=== PATIENT | male | born 1965 | race Caucasian/White ===

== ENCOUNTER → 2018-03-28 15:03 | Outpatient (CLI) | payer BC ==
[~2018-03-28 15:03] MED LIST: COUMADIN2.5 MG PO; HYDROCODON-ACE1 EA10 PO; LISINOPRIL-HCT1 EAC7 PO; OMEPRAZOLE20 M1 PO
== END | disposition home or self-care (01) ==
LOC: D.LABREF 15:03
DX: M17.11 Unilateral primary osteoarthritis, right knee (principal); Z11.8 Encounter for screening for other infectious and parasitic diseases

== ENCOUNTER 2018-04-18 10:09 | Inpatient (IN) | payer BC ==
[~2018-04-18] VITALS: Ht 185.4 cm; Wt 150.9 kg
[2018-04-19] MEDS ORDERED: OMEPRAZOLE20 M1 PO (14:25)
[2018-04-19] MEDS ORDERED: COUMADIN2.5 MG PO (14:26)
[2018-04-19] MEDS ORDERED: HYDROCODON-ACE1 EA10 PO (14:27)
[2018-04-20] MEDS ORDERED: LISINOPRIL-HCT1 EAC7 PO (10:51)
[2018-04-20 11:48] LABS: BASOPHILS 0.7 % (0-2); EOSINOPHILS 7.4 % (0-7); HEMATOCRIT 41.3 % (42.0-54.0); HEMOGLOBIN 12.4 g/dL (13.5-17.5); IMMATURE GRANULOCYTES 0.1 % (0-5); LYMPHOCYTES 19.4 % (15-50); MCH 24.4 pg (26.0-34.0); MCV 81.1 fL (80.0-100.0); MEAN PLATELET VOLUME 9.8 fL (7.4-10.4); MONOCYTES 10.8 % (2-11); NEUTROPHILS 61.6 % (40-80); PLATELET COUNT 271 10x3/uL (130-400); RBC 5.09 10x6/uL (4.20-6.10); RDW 14.6 % (11.5-14.5); WBC 7.1 10x3/uL (4.8-10.8)
[2018-04-20 12:04] LABS: CALCIUM 8.6 mg/dL (8.5-10.1); CARBON DIOXIDE 29.7 mmol/L (21.0-32.0); CREATININE - SERUM 1.1 mg/dL (0.6-1.3); POTASSIUM - SERUM 4.7 mmol/L (3.5-5.1)
[2018-04-20 12:18] LABS: APTT 42.6 SECONDS (22.8-39.4); INR 2.01 (0.85-1.17); PROTIME 22.1 SECONDS (11.6-15.0)
[2018-04-20 12:28] LABS: APPEARANCE CLEAR (CLEAR); BACTERIA FEW /hpf (NONE SEEN); BILIRUBIN NEGATIVE (NEGATIVE); COLOR YELLOW (YELLOW); EPITHELIAL CELLS OCC /hpf (0-5); GLUCOSE NEGATIVE (NEGATIVE); KETONE NEGATIVE (NEGATIVE); NITRITE NEGATIVE (NEGATIVE); PROTEIN NEGATIVE (NEGATIVE); RED CELLS - URINE OCC /hpf (0-5)
[2018-04-26] MEDS ORDERED: LOVENOX40 MG/0.4 SC (12:56)
[2018-04-26 12:57] VITALS: BP 141/78; BMI 42.3
--- NOTE | 2018-04-26 19:46 | NUR ---
1800 DR. CACERES HERE SPEAKS TO PT. 1930 DR. CACEERS HERE SPEAKS TO PT. CASE CANCELLED FOR TODAY AND RESCHEDULED FOR IN THE AM. IV DC'D WITH CATH INTACT RELEASED AMB. WITH . PT TO RETURN AT 0700.
--- NOTE | 2018-04-26 19:46 | NUR ---
1700 URINAL PROVIDED PT. UPDATE PROVIDED.
[2018-04-27 04:00] VITALS: BP 94/40
[2018-04-27 07:37] VITALS: BP 110/73; Ht 185.4 cm; Wt 150.9 kg
[2018-04-27 09:49] LABS: APTT 37.7 SECONDS (22.8-39.4); INR 1.11 (0.85-1.17); PROTIME 13.8 SECONDS (11.6-15.0)
[2018-04-27 13:43] VITALS: BP 115/72
[2018-04-27 20:00] VITALS: BP 107/59
[2018-04-28] VITALS (39 sets, daily range): BP systolic 70–171; BP diastolic 48–94
--- NOTE | 2018-04-28 03:59 | NUR ---
I have reviewed this patient and I concur with the Shift Assessment completed by the Licensed Practical Nurse today this shift.
[2018-04-28 05:07] LABS: BASOPHILS 0.2 % (0-2); EOSINOPHILS 4.3 % (0-7); HEMATOCRIT 36.7 % (42.0-54.0); HEMOGLOBIN 10.8 g/dL (13.5-17.5); IMMATURE GRANULOCYTES 0.2 % (0-5); LYMPHOCYTES 12.6 % (15-50); MCH 24.2 pg (26.0-34.0); MCHC 29.4 g/dL (31.0-37.0); MCV 82.1 fL (80.0-100.0); MEAN PLATELET VOLUME 10.6 fL (7.4-10.4); NEUTROPHILS 71.7 % (40-80); PLATELET COUNT 219 10x3/uL (130-400); RBC 4.47 10x6/uL (4.20-6.10); RDW 15.2 % (11.5-14.5); WBC 8.1 10x3/uL (4.8-10.8)
[2018-04-28 05:30] LABS: ALBUMIN 2.7 g/dL (3.4-5.0); ANION GAP 12.8 mmol/L (8-16); BILIRUBIN - TOTAL 0.46 mg/dL (0.2-1.3); CALCIUM 7.6 mg/dL (8.5-10.1); CARBON DIOXIDE 27.9 mmol/L (21.0-32.0); CREATININE - SERUM 2.2 mg/dL (0.6-1.3); POTASSIUM - SERUM 4.7 mmol/L (3.5-5.1); PROTEIN - SERUM 5.4 g/dL (6.4-8.2)
--- NOTE | 2018-04-28 06:53 | OP ---
PATIENT NAME: ANTELMO CASTELLANOS MEDICAL RECORD: [id number] :61 LOCATION:D.MS [id number] ADMISSION DATE:04/27/18 SURGEON: ANTELMO CACERES DO DATE OF OPERATION: 04/27/2018 PROCEDURE PERFORMED: Right total knee arthroplasty. PREOPERATIVE DIAGNOSIS: Right knee osteoarthritis. POSTOPERATIVE DIAGNOSIS: Right knee osteoarthritis. INDICATIONS: Mr. Castellanos is a 53-year-old male who has been getting injections in his knees periodically for several years. He lost a significant amount of weight as well. He has tried every nonoperative treatment possible for knee osteoarthritis and is ready for something surgically to be done. He was seen in my office a few months ago and informed of the risks and benefits of the procedure including infection, bleeding, damage to nerve or vessels. He has an increased risk for blood clots due to his factor V Leiden deficiency and his primary care physician did bridge him with Lovenox. Also due to the size, he has increased risk for fracture, failure of implants, and need for revision and infection. He was okay with those risk and signed the consent. SURGEON: Antelmo Caceres DO DESCRIPTION OF PROCEDURE: The patient received a block by anesthesia in the preoperative area and taken to the operative suite, laid in supine position and given a gram of vancomycin preoperatively. The right knee was prepped and draped in sterile fashion. A timeout was performed and everyone was in agreement with the correct side, site, patient, and procedure. The incision then began, that was marked out over the anterior knee and covered with Ioban. Incision began along the marked out line. Careful dissection was made down to the capsule. It did have a small hard nodule type of tissue at the distal extent of the incision that he wanted to excise and this was removed at that time, appeared to be a lipoma. After this was excised, the medial parapatellar approach was used to go through the capsule. All bleeding was coagulated with the Aquamantys during the procedure. The fat pad was partially removed. The patella was everted and milled down to fit the prosthesis. The femur was then flexed up. ACL was removed and a drill was used to enter the femoral canal. Once the femoral canal was entered, this was irrigated and then the distal femur guide was put on, the distal femur was resected. The tibia was then exposed and the proximal tibia was cut through the guide. Then, the knee was brought to extension. Lamina shipping clerk/admin was used to open it up and menisci were removed from the medial and lateral side and any other bone fragments that were left after the cut. After that was completed, the medial and lateral gutters as well as the posterior capsule was coagulated with the Aquamantys. The knee was then flexed up and the femur sized to be an 80. Once that was sized 4-in-1 cutting block was put on and the femur was cut and the trial was put on. The tibia was floated into place and then rotation was marked. Patella was then drilled as well as the lug holes on the femur. Femur was then removed and the tibia was exposed and sized to be an 87. This was drilled and punched and then irrigated and cement was mixed and put into the tibia and on the implant and that was impacted into place. Once the tibia impacted into place, excess cement was removed. The femur was put and pressed it on and malleted into place. The poly was put in between the femur and the tibia at that time and brought to extension and the patella was put on, cement on the implant and on the patella and held in OPERATIVE REPORT [id number] ANTELMO CASTELLANOS while the cement dried. The through irrigation was done at the knee at this time. After that was completed, the cement was dried, a trial of 14 poly has fit very well. Had good medial and lateral stability and flexion and extension and this was put in with a deep dish anterior stabilized with 14 E-poly. I then locked into place with the locking mechanism. Knee was irrigated one more time and then tobramycin and vancomycin powder put in the gutters as well as Surgicel beads and the capsule was closed with #2 Ethibond in bughna-dn-[id number] fashion and then that was irrigated and then the skin was closed with 2-0 Vicryl in inverted interrupted fashion and a ZipLine was placed on the knee. Adaptic, 4 x 4s, ABD, Webril, and Osmar wrap were then placed on the knee and VANIA hose stocking up to the knee. Blood loss was approximately 200 mL. COMPLICATIONS: None. TRANSINT:[id number] Voice Confirmation ID: [id number] DOCUMENT ID: [id number] ANTELMO CACERES DO at 0653 CC: CHANTAL SAENZ MD [id number] DICTATION DATE: 04/27/18 1252 TIMEKEEPER SUPERVISOR: 04/27/18 2244 ADM IN [place] [address] [facility], [facility]901
--- NOTE | 2018-04-28 07:53 | NUR ---
AWAKE AND ALERT. ORIENTED X3. NO C/O AT THIS TIME. LUNGS ARE CLEAR BILATERALLY, NO COUGH NOTED. SKIN IS INTACT WITHOUT REDNESS EXCEPT INCISION TO RIGHT KNEE WHICH HAS A DRY INTACT DRESSING PLACE. DR. CACERES HERE AND CHANGED DRESSING THIS AM. IV TO RIGHT FOREARM IS PATENT WITHOUT REDNESS AT INSERTION SITE. DENIES NEEDS. CPM IN PLACE AT THIS TIME. SCD'S IN PLACE.
--- NOTE | 2018-04-28 09:15 | NUR ---
UP TO CHIAR AT BEDSIDE PER PT. REQUESTED AND GIVEN OXYCODONE PO FOR C/O RIGHT KNEE PAIN LEVEL 6. WILL MONITOR.
--- NOTE | 2018-04-28 12:00 | NUR ---
BP IS LOW. MANUAL CHECK WAS 70/50. 500CC BOLUS INITIATED PER ORDERS. WILL MONITOR.
--- NOTE | 2018-04-28 13:11 | NUR ---
BP IS 70/50 AT THIS TIME. ASSISTED TO BED PER STAFF. FLORIAN WALDRON NOTIFIED OF SAME. 500CC BOLUS INTIATED. DR CACERES NOTIFIED OF CURRENT BP. WILL MONITOR.
--- NOTE | 2018-04-28 14:00 | NUR ---
UNABEL TO GET BP MANUAL OR MACHINE. AFTER A PERIOD OF TIME BP OBTAINED AT 60PALP. RAPID RESPONSE CALLED AFTER UNABLE TO FIND BP. PATIENT TRANSFERRED TO ICU VIA BED PER SANTANA.
[2018-04-28 14:34] LABS: HEMATOCRIT 32.5 % (42.0-54.0); HEMOGLOBIN 9.6 g/dL (13.5-17.5)
[2018-04-28 15:10] LABS: CKMB 0.4 U/L (0.0-3.6); CREATINE KINASE 164 UL (21-232); PRO BNP 117 pg/mL (0-125); TROPONIN-I < 0.017 ng/mL (0.000-0.060)
--- NOTE | 2018-04-28 15:18 | NUR ---
Prevena dressing applied to right knee per Dr. Arreola's orders. Pt tolerated well.
--- NOTE | 2018-04-28 15:30 | NUR ---
PT ARRIVED TO UNIT AROUND 1505 VIA BED. BP WAS 104/63. PLACED ON LEVOPHED DRIP AT 4MCG/MIN. PLACED ON 2L OF 02 VIA NC. PT DENIES PAIN AT THIS TIME. HAS DRESSING ON RIGHT KNEE. ABLE TO ANSWER QUESTIONS APPROPRIATELY. HAS PIV ON RIGHT FOREARM. SAFETY MEASURES IN PLACE. WILL CONTINUE TO MONITOR.
--- NOTE | 2018-04-28 16:08 | NUR ---
PT ON LEVOPHED DRIP. SPOKE WITH HARRIETT GOMEZ REGARDING ORDER. SHE SAID TO CONTINUE WITH LEVOPHED DRIP UNTIL DR. BARNARD SEE PATIENT.
--- NOTE | 2018-04-28 16:17 | NUR ---
DR. BARNARD NOTIFIED OF CONSULT. NOT IN HOSPITAL AT THIS TIME. ORDERED TO CONTINUE WITH LEVOPHED DRIP TO MAINTAIN BP.
--- NOTE | 2018-04-28 16:25 | MORECARE ---
CASE MANAGEMENT DISCHARGE SUMMARY PATIENT: KWASI CASTELLANOS UNIT: [id number] ADM DATE: 04/27/18 AGE: 53 : 61 SEX: M ROOM/BED: D.2309 AUTHOR: GUSTABO SPENCE PHYSICIAN: REFERRING PHYSICIAN: KWASI CACERES DO DATE OF SERVICE: 04/28/18 Discharge Plan Patient Name: KWASI CASTELLANOS [facility] [facility] 1965 Planned Disposition: Home Anticipated Discharge Date: Discharge Date: Expected LOS: Initial Reviewer: [email or web address] Initial Review Date: 04/26/2018 Generated: 04/28/18 5:25 pm DCPIA - Discharge Planning Initial Assessment Updated by [email or web address]: Olena Moses on 04/28/18 4:23 pm * Is the patient Alert and Oriented? Yes * How many steps to enter\exit or inside your home? * PCP MINI SAENZ'S OFFICE * Pharmacy [facility] * Preadmission Environment Home with Family * ADLs Independent * Other Equipment WALKER, BSC, SHOWER CHAIR, CPM , ICE BATH * List name and contact numbers for known caregivers / representatives who currently or will assist patient after discharge: ANA CASTELLANOS - - [phone] * Verbal permission to speak to the caregivers and representatives has been obtained from the patient. Yes * Additional services required to return to the preadmission environment? No * Can the patient safely return to the preadmission environment? Yes * Has this patient been hospitalized within the prior 30 days at any hospital? No Patient Name: KWASI CASTELLANOS Page [phone] at 1625 All edits/amendments must be made on the electronic document DICTATION DATE: 04/28/181623 MULTIMEDIA MANAGER: GINA 04/28/181623 RPT#: [id number] DC DATE: STATUS: ADM IN [facility] [address] [place] [address] END OF REPORT
--- NOTE | 2018-04-28 16:25 | NUR ---
RATES PAIN 4/10 ON RIGHT KNEE. OXYCODONE 5MG TAB GIVEN AT THIS TIME. LEVOPHED DRIP INFUSING AT 4MCG/MIN. BP 98/50. FAMILY AT BEDSIDE. WILL CONTINUE TO MONITOR.
--- NOTE | 2018-04-28 16:33 | MORECARE ---
CASE MANAGEMENT DISCHARGE SUMMARY PATIENT: KWASI CASTELLANOS UNIT: [id number] ADM DATE: 04/27/18 AGE: 53 : 61 SEX: M ROOM/BED: D.2309 AUTHOR: GUSTABO SPENCE PHYSICIAN: REFERRING PHYSICIAN: KWASI CACERES DO DATE OF SERVICE: 04/28/18 Discharge Plan Patient Name: KWASI CASTELLANOS Facility: [facility]:[place] : 1965 Planned Disposition: Home Anticipated Discharge Date: Discharge Date: Expected LOS: Initial Reviewer: [email or web address] Initial Review Date: 04/26/2018 Generated: 04/28/18 5:33 pm Comments DCP- Discharge Planning Updated by [email or web address]: Olena Moses on 04/28/18 3:[address] Patient Name: KWASI CASTELLANOS Admission Status: Elective Accout number: [id number] Admission Date: 04-27-2018 : 1965 Admission Diagnosis: Attending: KWASI CACERES Current LOS: 1 Anticipated DC Date: Planned Disposition: Home Primary Insurance: [employer] EXCHANGE Discharge Planning Comments: CM met with patient and family at bedside after obtaining verbal consent. Patient lives at home with his family and plans on returning upon discharge. Patient states that he has walker, bedside commode, shower chair, ice bath for knee, and CPM range of motion. Patient denies any Home Health services prior to admission. Patient denies any discharge needs at this time. CM will continue to follow and assist with discharge planning / needs. Liquefier: Olena Moses DCPIA - Discharge Planning Initial Assessment Updated by [email or web address]: Olena Moses on 04/28/18 4:23 pm * Is the patient Alert and Oriented? Yes * How many steps to enter\exit or inside your home? * PCP MINI SAENZ'S OFFICE * Pharmacy [facility] * Preadmission Environment Home with Family * ADLs Independent * Other Equipment WALKER, BSC, SHOWER CHAIR, CPM , ICE BATH * List name and contact numbers for known caregivers / representatives who currently or will assist patient after discharge: ANA CASTELLANOS - - [phone] * Verbal permission to speak to the caregivers and representatives has been obtained from the patient. Yes * Additional services required to return to the preadmission environment? No * Can the patient safely return to the preadmission environment? Yes * Has this patient been hospitalized within the prior 30 days at any hospital? No Last DP export: 04/28/18 3:25 pm Patient Name: KWASI CASTELLANOS Page [phone] at 1633 All edits/amendments must be made on the electronic document DICTATION DATE: 04/28/18 163 INTERIOR PLANT CARETAKER: GINA 04/28/18 163 RPT#: [id number] DC DATE: STATUS: ADM IN [facility] [address] [place] [address] END OF REPORT
--- NOTE | 2018-04-28 16:52 | NUR ---
COUMADIN NOT AVAILABLE IN UNIT. PHARMACY NOTIFIED. SPOKE WITH GABRIELA.
--- NOTE | 2018-04-28 17:09 | NUR ---
DR. CACERES AT BEDSIDE.
--- NOTE | 2018-04-28 17:46 | NUR ---
DR. BARNARD AT BEDSIDE. SPOKE WITH PATIEN AND FAMILY.
--- NOTE | 2018-04-28 18:25 | NUR ---
SBP 112. LEVOPHED DRIP DECREASED TO 5MCG/MIN. WILL CONTINUE TO MONITOR.
--- NOTE | 2018-04-28 19:19 | NUR ---
SBP 89. INCREASED LEVOPHED BACK UP TO 5MCG/MIN.
--- NOTE | 2018-04-28 19:41 | NUR ---
BEDSIDE SHIFT REPORT GIVEN BY DEPARTING RN. PT LAYING IN BED WATCHING TV. AAOX4. PERRLA. RT FA PIV INFUSING MR ORDERED MEDS. LEVOPHED DRIP TO BE TITRATED VIA PROTOCOL. DENIES PAIN AT THIS TIME. SAFETY MEASURES IN PLACE. CBIR. ASSESSMENT COMPLETE. SEE FLOWSHEET FOR DETAILS.
--- NOTE | 2018-04-28 20:49 | NUR ---
REFUSED HS MED. STATED HE DID NOT NEED IT.
[2018-04-28 21:31] LABS: CKMB 0.8 U/L (0.0-3.6); CREATINE KINASE 204 UL (21-232); TROPONIN-I < 0.017 ng/mL (0.000-0.060)
[2018-04-28 21:51] LABS: APPEARANCE CLOUDY (CLEAR); BILIRUBIN NEGATIVE (NEGATIVE); COLOR YELLOW (YELLOW); GLUCOSE NEGATIVE (NEGATIVE); KETONE NEGATIVE (NEGATIVE); NITRITE NEGATIVE (NEGATIVE); PROTEIN 1+ mg/dL (NEGATIVE); UROBILINOGEN NORMAL (NORMAL)
[2018-04-28 21:52] LABS: BACTERIA MODERATE /hpf (NONE SEEN); EPITHELIAL CELLS 0-5 /hpf (0-5); RED CELLS - URINE 0-5 /hpf (0-5)
[2018-04-29] VITALS (42 sets, daily range): BP systolic 95–127; BP diastolic 50–81
--- NOTE | 2018-04-29 03:32 | NUR ---
REASSESSMENT COMPLETE. FRESH WATER PROVIDED. NO CHANGES NOTED. SAFETY MEASURES IN PLACE. CBIR.
[2018-04-29 03:40] LABS: BASOPHILS 0.3 % (0-2); EOSINOPHILS 6.3 % (0-7); HEMATOCRIT 33.1 % (42.0-54.0); HEMOGLOBIN 9.6 g/dL (13.5-17.5); IMMATURE GRANULOCYTES 0.3 % (0-5); LYMPHOCYTES 13.8 % (15-50); MCH 23.6 pg (26.0-34.0); MCV 81.5 fL (80.0-100.0); MEAN PLATELET VOLUME 9.7 fL (7.4-10.4); MONOCYTES 14.5 % (2-11); NEUTROPHILS 64.8 % (40-80); PLATELET COUNT 170 10x3/uL (130-400); RBC 4.06 10x6/uL (4.20-6.10); RDW 15.2 % (11.5-14.5); WBC 8.7 10x3/uL (4.8-10.8)
[2018-04-29 03:49] LABS: INR 1.27 (0.85-1.17); PROTIME 15.4 SECONDS (11.6-15.0)
[2018-04-29 04:05] LABS: ALBUMIN 2.3 g/dL (3.4-5.0); ALKALINE PHOSPHATASE 63 U/L (46-116); BILIRUBIN - TOTAL 0.48 mg/dL (0.2-1.3); CALC OSMOLALITY 294 mosm/kg (275-300); CALCIUM 7.5 mg/dL (8.5-10.1); CARBON DIOXIDE 26.4 mmol/L (21.0-32.0); CHLORIDE - SERUM 106 mmol/L (98-107); CKMB 0.6 U/L (0.0-3.6); CREATINE KINASE 171 UL (21-232); GLUCOSE 132 mg/dL (74-106); POTASSIUM - SERUM 4.7 mmol/L (3.5-5.1); PROTEIN - SERUM 5.3 g/dL (6.4-8.2); SODIUM 141 mmol/L (136-145); UREA NITROGEN 46 mg/dL (7-18); URIC ACID 6.9 mg/dL (2.6-7.2)
[2018-04-29 04:11] LABS: ALT (SGPT) 22 U/L (10-68); CREATININE - SERUM 3.5 mg/dL (0.6-1.3); TROPONIN-I < 0.017 ng/mL (0.000-0.060); eGFR NON AFRICAN AMERICAN 19 mL/min (90-120)
--- NOTE | 2018-04-29 07:30 | NUR ---
SHIFT REPORT RECEIVED. AA&OX4. PAIN 5/10 RIGHT KNEE. HAS R-FOREARM PIV WITH PLASMALYTE AT 100ML/HR AND LEVOPHED AT 2MCG/MIN. LEVOPHED DECREASED TO 1MCG/MIN. BP 115/65. VOIDS USING URINAL. 500ML OF YELLOW URINE NOTED. SHIFT ASSESSMENT COMPLETED. MEAL TRAY DELIVERED AND SET UP. NO FURTHER NEEDS. WILL CONTINUE TO MONITOR.
--- NOTE | 2018-04-29 08:08 | NUR ---
PHYSICAL THERAPY NOTIFIED OF CONSULT. WILL BE HERE TO SET UP CPM MACHINE.
--- NOTE | 2018-04-29 08:34 | NUR ---
LEVOPHED DRIP TURNED OFF AT THIS TIME. BP 122/69. ON ROOM AIR WITH O2 SAT 96%. PAIN MEDICINE GIVEN AT THIS TIME PER ORDERS. RATES PAIN 06/01.
--- NOTE | 2018-04-29 09:35 | NUR ---
URINE SAMPLE COLLECTED VIA CLEAN CATCH. PHYSICAL THERAPY PLACED PT ON CPM MACHINE AT THIS TIME. WILL CONTINUE TO MONITOR.
--- NOTE | 2018-04-29 10:15 | NUR ---
ON CPM MACHINE. RATES PAIN 4/10 AT THIS TIME. GAVE OXYCODONE 5MG TAB AROUND 0830. WILL CONTINUE TO MONITOR AND TREAT PAIN NECESSARY.
--- NOTE | 2018-04-29 10:35 | NUR ---
SPOKE WITH DR. BARNARD AND DR. SAAB REGARDING PT BEING ABLE TO TRANSFER TO FLOOR. BOTH STATED THAT THEY ARE OKAY WITH HIM TRANSFERRING IF BP REMAINS STABLE.
--- NOTE | 2018-04-29 10:55 | NUR ---
CALL RECEIVED FROM LAKESHIA CASTELLANOS, PT'S . WANT BRIEF UP DATE ON PT'S STATUS. NO PASS WORD SET UP. SHE WAS ABLE TO PROVIDE PT'S FULL NAME AND DATE OF . TOLD THAT PT WAS STABLE AND THAT HE WAS OFF PRESSORS AT THIS TIME. SHE STATED THAT SHE WILL BE BY TO SEE PATIENT LATER IN THE DAY.
--- NOTE | 2018-04-29 11:51 | NUR ---
PT CONTINUES ON CPM MACHINE. DENIES ANY NEEDS AT THIS TIME. BP 113/70. PT HAS TRANSFER ORDERS TO ROOM 2210. ATTEMPTED TO CALL REPORT. RECEIVING NURSE WILL CALL ME BACK TO RECIEVE REPORT.
--- NOTE | 2018-04-29 12:18 | NUR ---
REPORT CALLED TO [facility] MAIN ON MED SURG. WILL TRANSFER PT SOON PT IS TAKEN OFF CPM MACHINE.
--- NOTE | 2018-04-29 13:59 | NUR ---
22 G PIV INSERTED ON L-FOREARM BY VENOUS ACCESS NURSE. R-FOREARM PIV DC'D DUE TO LEAKING AROUND INSERTION SITE AND TENDERNESS REPORTED BY PT. PT TRANSFERRED TO ROOM 2210. SPOUSE AWARE OF TRANSFER. PERSONAL BELONGINGS SENT WITH PT. CHART DELIVERED TO FUSION ANALYST. RECEIVING NURSE NOTIFIED OF PT ARRIVAL.
--- NOTE | 2018-04-29 14:10 | NUR ---
RECIVED PT FROM DONNA AND JOLEEN ICU NURSES. NO S/S OF ACUTE DISTRESS. ORDERED PT A TRAY. OXY GIVEN OER MD ORDER. CL IN PLACE. SISTER AT BEDSIDE.
--- NOTE | 2018-04-29 18:38 | NUR ---
PT RESTING IN BED. DENIES PAIN. NO S/S OF ACUTE DISTRESS. CL IN PLACE.
--- NOTE | 2018-04-29 19:15 | NUR ---
RECEIVED CARE FROM DAY NURSE. LYING IN BED WATCHING TV. REPORTS NO NEEDS AT THIS TIME. CALL LIGHT AT SIDE. IV INFUSING PER ORDER TO LEFT WRIST.
[2018-04-30 04:00] VITALS: BP 114/69
--- NOTE | 2018-04-30 06:00 | NUR ---
PLACED ON CPM
[2018-04-30 06:23] LABS: BASOPHILS 0.3 % (0-2); EOSINOPHILS 5.2 % (0-7); HEMATOCRIT 32.4 % (42.0-54.0); HEMOGLOBIN 9.6 g/dL (13.5-17.5); IMMATURE GRANULOCYTES 0.3 % (0-5); LYMPHOCYTES 10.4 % (15-50); MCH 23.9 pg (26.0-34.0); MCHC 29.6 g/dL (31.0-37.0); MCV 80.8 fL (80.0-100.0); MEAN PLATELET VOLUME 10.5 fL (7.4-10.4); MONOCYTES 11.4 % (2-11); NEUTROPHILS 72.4 % (40-80); PLATELET COUNT 185 10x3/uL (130-400); RBC 4.01 10x6/uL (4.20-6.10); RDW 15.1 % (11.5-14.5); WBC 8.7 10x3/uL (4.8-10.8)
[2018-04-30 06:37] LABS: ALBUMIN 2.3 g/dL (3.4-5.0); ANION GAP 13.2 mmol/L (8-16); BILIRUBIN - TOTAL 0.6 mg/dL (0.2-1.3); CALCIUM 7.9 mg/dL (8.5-10.1); CARBON DIOXIDE 27.4 mmol/L (21.0-32.0); POTASSIUM - SERUM 4.6 mmol/L (3.5-5.1); PROTEIN - SERUM 5.6 g/dL (6.4-8.2)
[2018-04-30 06:38] LABS: CREATININE - SERUM 2.5 mg/dL (0.6-1.3)
--- NOTE | 2018-04-30 08:13 | NUR ---
PT RESTING IN BED. CO OF CPM NOT FEELING WELL. REPOSITIONED AND PUT A TOWEL IN GROIN AREA TO PREVENT IT FROM ITCHING. NO S/S OF ACUTE DISTRESS. CL IN PLACE.
[2018-04-30 10:59] VITALS: BP 124/63
[2018-04-30 13:40] VITALS: BP 121/67
[2018-04-30 16:59] VITALS: BP 129/80
--- NOTE | 2018-04-30 19:05 | NUR ---
IN ROOM HELPING PT TO BR. NO S/S OF ACUTE DISTRESS. CL IN PLACE.
--- NOTE | 2018-04-30 19:15 | NUR ---
RECEIVED CARE FROM DAY NURSE. LYING IN BED. CALL LIGHT AT SIDE. IV TO LEFT WRIST/FA SL. NO NEEDS VOICED AT THIS TIME.
[2018-04-30 20:36] VITALS: BP 126/70
[2018-04-30 23:55] VITALS: BP 136/83
[2018-05-01 04:20] VITALS: BP 133/79
--- NOTE | 2018-05-01 05:07 | NUR ---
I have reviewed this patient and I concur with the Shift Assessment completed by the Licensed Practical Nurse today this shift.
--- NOTE | 2018-05-01 06:00 | NUR ---
REFUSED CPM, REPORTS TO TALL FOR THE BED
[2018-05-01 06:45] LABS: BASOPHILS 0.5 % (0-2); EOSINOPHILS 7.1 % (0-7); HEMATOCRIT 31.3 % (42.0-54.0); HEMOGLOBIN 9.5 g/dL (13.5-17.5); IMMATURE GRANULOCYTES 0.4 % (0-5); LYMPHOCYTES 13.5 % (15-50); MCH 24.4 pg (26.0-34.0); MCHC 30.4 g/dL (31.0-37.0); MCV 80.5 fL (80.0-100.0); MEAN PLATELET VOLUME 10.6 fL (7.4-10.4); MONOCYTES 13.9 % (2-11); NEUTROPHILS 64.6 % (40-80); PLATELET COUNT 206 10x3/uL (130-400); RBC 3.89 10x6/uL (4.20-6.10); WBC 7.6 10x3/uL (4.8-10.8)
[2018-05-01 07:17] LABS: ALBUMIN 2.2 g/dL (3.4-5.0); ANION GAP 12.7 mmol/L (8-16); BILIRUBIN - TOTAL 0.55 mg/dL (0.2-1.3); CALCIUM 8.3 mg/dL (8.5-10.1); CARBON DIOXIDE 28.1 mmol/L (21.0-32.0); POTASSIUM - SERUM 4.8 mmol/L (3.5-5.1); PROTEIN - SERUM 5.7 g/dL (6.4-8.2)
[2018-05-01 07:20] LABS: CREATININE - SERUM 1.7 mg/dL (0.6-1.3)
--- NOTE | 2018-05-01 07:57 | NUR ---
PT RESTING IN BED WATCHING TV. DENIES PAIN. NO S/S OF ACUTE DISTRESS. CL IN PLACE.
[2018-05-01] MEDS ORDERED: LOVENOX40 MG/0.4 SC (08:41)
[2018-05-01] MEDS ORDERED: OXYCODONE HCL5 M1 PO (08:44)
[2018-05-01] MEDS ORDERED: OMNICEF300 MG PO (08:44)
[2018-05-01] MEDS ORDERED: VISTARIL50 MG PO (08:44)
[2018-05-01 08:59] VITALS: BP 146/85
--- NOTE | 2018-05-01 11:30 | NUR ---
CONFIRMED WITH ASTRID WILKINSON APN, WITH RENAL THAT PT MAY RESUME LISINOPRIL.
--- NOTE | 2018-05-01 12:23 | NUR ---
PT AND SPOUSE ADVISED THAT [facility] CALLS WILL CALL THEM TO ARRANGE THEIR APPT TIME.
--- NOTE | 2018-05-01 12:58 | NUR ---
LATE ENTRY TO 1530. DC EDUCATION AND INSTRUCTIONS DONE WITH PT AND . DC IV WITH TIP INTACT. DAUGHTER PUSHED PT OFF FLOOR VIA WC. TOOK ALL BELONGINGS. NO S/S OF ACUTE DISTRESS. CL IN PLACE.
--- NOTE | 2018-05-01 13:09 | NUR ---
ADDENDUM TO PRIOR NOTE. LATE ENTRY FOR 1330 NOT 1530. PT DC AT 1330
--- NOTE | 2018-05-01 17:17 | MORECARE ---
CASE MANAGEMENT DISCHARGE SUMMARY PATIENT: KWASI CASTELLANOS UNIT: [id number] ADM DATE: 04/27/18 AGE: 53 : 61 SEX: M ROOM/BED: D.2210 AUTHOR: GUSTABO SPENCE PHYSICIAN: REFERRING PHYSICIAN: KWASI CACERES DO DATE OF SERVICE: 05/01/18 Discharge Plan Patient Name: KWASI CASTELLANOS Facility: [facility]:[place] : 1965 Planned Disposition: Home Anticipated Discharge Date: 05/01/18 Discharge Date: 05/01/2018 Expected LOS: 4 Initial Reviewer: [email or web address] Initial Review Date: 04/26/2018 Generated: 05/01/18 6:17 pm Comments DCP- Discharge Planning Updated by [email or web address]: Olena Moses on 04/28/18 2:[address] Patient Name: KWASI CASTELLANOS Admission Status: Elective Accout number: [id number] Admission Date: 04-27-2018 : 1965 Admission Diagnosis: Attending: KWASI CACERES Current LOS: 1 Anticipated DC Date: Planned Disposition: Home Primary Insurance: [employer] EXCHANGE Discharge Planning Comments: CM met with patient and family at bedside after obtaining verbal consent. Patient lives at home with his family and plans on returning upon discharge. Patient states that he has walker, bedside commode, shower chair, ice bath for knee, and CPM range of motion. Patient denies any Home Health services prior to admission. Patient denies any discharge needs at this time. CM will continue to follow and assist with discharge planning / needs. Road Advisor: Olena Moses DCPIA - Discharge Planning Initial Assessment Updated by [email or web address]: Olena Moses on 04/28/18 4:23 pm * Is the patient Alert and Oriented? Yes * How many steps to enter\exit or inside your home? * PCP MINI SAENZ'S OFFICE * Pharmacy [facility] * Preadmission Environment Home with Family * ADLs Independent * Other Equipment WALKER, BSC, SHOWER CHAIR, CPM , ICE BATH * List name and contact numbers for known caregivers / representatives who currently or will assist patient after discharge: ANA CASTELLANOS - - [phone] * Verbal permission to speak to the caregivers and representatives has been obtained from the patient. Yes * Additional services required to return to the preadmission environment? No * Can the patient safely return to the preadmission environment? Yes * Has this patient been hospitalized within the prior 30 days at any hospital? No Last DP export: 04/28/18 2:33 pm Patient Name: KWASI CASTELLANOS Page [phone] at 1717 All edits/amendments must be made on the electronic document DICTATION DATE: 05/01/181715 STILL WORKER HELPER: GINA 05/01/181715 RPT#: [id number] DC DATE:05/01/18 STATUS: DIS IN [facility] [address] [place] [address] END OF REPORT
--- NOTE | 2018-05-01 17:24 | MORECARE ---
CASE MANAGEMENT DISCHARGE SUMMARY PATIENT: KWASI CASTELLANOS UNIT: [id number] ADM DATE: 04/27/18 AGE: 53 : 61 SEX: M ROOM/BED: D.2210 AUTHOR: GUSTABO SPENCE PHYSICIAN: REFERRING PHYSICIAN: KWASI CACERES DO DATE OF SERVICE: 05/01/18 Discharge Plan Patient Name: KWASI CASTELLANOS Facility: [facility]:[place] : 1965 Planned Disposition: Home Anticipated Discharge Date: 05/01/18 Discharge Date: 05/01/2018 Expected LOS: 4 Initial Reviewer: [email or web address] Initial Review Date: 04/26/2018 Generated: 05/01/18 6:24 pm Comments DCP- Discharge Planning Updated by [email or web address]: Zulema Edwards on 05/01/18 4:[address] LATE ENTRY 1000 PATIENT FOR DISCHARGE TO HOME TODAY. HE HAS HIS DME AT THE BEDSIDE. HE STATES NO ONE SPOKE TO HIM ABOUT OUTPATIENT PHYSICAL THERAPY. HE WOULD LIKE A PROVIDER CLOSE TO HIS HOME IN [place]. HE WILL COME TO [facility] IF HE HAS TO HAVE SERVICE ON SITE. CM FOUND THREE PROVIDERS CLOSER TO THE PATIENT. HE SELECTED [facility] AT [address] [place] [address].. CONTACT PHONE NUMBER [phone]. PROVIDED PATIENT W/ ABOVE INFORMATION. CM AND THE PATIENT WILL CALL [facility] IN THE AM. DCP- Discharge Planning Updated by [id number]: Olena Moses on 04/28/18 2:[address] Patient Name: KWASI CASTELLANOS Admission Status: Elective Accout number: [id number] Admission Date: 04-27-2018 : 1965 Admission Diagnosis: Attending: KWASI CACERES Current LOS: 1 Anticipated DC Date: Planned Disposition: Home Primary Insurance: [employer] EXCHANGE Discharge Planning Comments: CM met with patient and family at bedside after obtaining verbal consent. Patient lives at home with his family and plans on returning upon discharge. Patient states that he has walker, bedside commode, shower chair, ice bath for knee, and CPM range of motion. Patient denies any Home Health services prior to admission. Patient denies any discharge needs at this time. CM will continue to follow and assist with discharge planning / needs. Target Setter: Olena Moses DCPIA - Discharge Planning Initial Assessment Updated by [email or web address]: Olena Moses on 04/28/18 4:23 pm * Is the patient Alert and Oriented? Yes * How many steps to enter\exit or inside your home? * PCP MINI SAENZ'S OFFICE * Pharmacy [facility] * Preadmission Environment Home with Family * ADLs Independent * Other Equipment WALKER, BSC, SHOWER CHAIR, CPM , ICE BATH * List name and contact numbers for known caregivers / representatives who currently or will assist patient after discharge: ANA CASTELLANOS - - [phone] * Verbal permission to speak to the caregivers and representatives has been obtained from the patient. Yes * Additional services required to return to the preadmission environment? No * Can the patient safely return to the preadmission environment? Yes * Has this patient been hospitalized within the prior 30 days at any hospital? No Last DP export: 05/01/18 4:17 p Patient Name: KWASI CASTELLANOS Page [phone] at 1724 All edits/amendments must be made on the electronic document DICTATION DATE: 05/01/181722 TIMING INSPECTOR: GINA 05/01/181722 RPT#: [id number] DC DATE:05/01/18 STATUS: DIS IN [facility] [address] [place] [address] END OF REPORT
--- NOTE | 2018-05-02 10:26 | MORECARE ---
CASE MANAGEMENT DISCHARGE SUMMARY PATIENT: KWASI CASTELLANOS UNIT: [id number] ADM DATE: 04/27/18 AGE: 53 : 61 SEX: M ROOM/BED: D.2210 AUTHOR: GUSTABO SPENCE PHYSICIAN: REFERRING PHYSICIAN: KWASI CACERES DO DATE OF SERVICE: 05/02/18 Discharge Plan Patient Name: KWASI CASTELLANOS Facility: [facility]:[place] : 1965 Planned Disposition: Home Anticipated Discharge Date: 05/01/18 Discharge Date: 05/01/2018 Expected LOS: 4 Initial Reviewer: [id number] Initial Review Date: 04/26/2018 Generated: 05/02/18 11:26 am Comments DCP- Discharge Planning Updated by [email or web address]: Zulema Edwards on 05/02/18 9:[address] TELEPHONE CALL TO [facility] THIS AM. ADVISED OF PATIENT REFERRAL FOR PHYSICAL THERAPY. FAXED FACE SHEET, D/C SUMMARY AND MD ORDER TO [phone].. THEY WILL CONTACT THE PATIENT. 1015 PATIENT'S CALLED REGARDING CPM SETTING. TC TO THE REP, BENJAMIN ROMANO , AT [phone]. HE WILL SEND A REP TO SEE THE PATIENT'S . PHYSICAL THERAPY DISCUSSED CPM SETTINGS W/ THE VIA TELEPHONE. DCP- Discharge Planning Updated by [email or web address]: Zulema Edwards on 05/01/18 4:[address] LATE ENTRY 1000 PATIENT FOR DISCHARGE TO HOME TODAY. HE HAS HIS DME AT THE BEDSIDE. HE STATES NO ONE SPOKE TO HIM ABOUT OUTPATIENT PHYSICAL THERAPY. HE WOULD LIKE A PROVIDER CLOSE TO HIS HOME IN [place]. HE WILL COME TO [facility] IF HE HAS TO HAVE SERVICE ON SITE. CM FOUND THREE PROVIDERS CLOSER TO THE PATIENT. HE SELECTED [facility] AT [facility].. CONTACT PHONE NUMBER [phone]. PROVIDED PATIENT W/ ABOVE INFORMATION. CM AND THE PATIENT WILL CALL [facility] IN THE AM. DCP- Discharge Planning Updated by [email or web address]: Olena Moses on 04/28/18 2:[address] Patient Name: KWASI CASTELLANOS Admission Status: Elective Accout number: [id number] Admission Date: 04-27-2018 : 1965 Admission Diagnosis: Attending: KWASI CACERES Current LOS: 1 Anticipated DC Date: Planned Disposition: Home Primary Insurance: [employer] EXCHANGE Discharge Planning Comments: CM met with patient and family at bedside after obtaining verbal consent. Patient lives at home with his family and plans on returning upon discharge. Patient states that he has walker, bedside commode, shower chair, ice bath for knee, and CPM range of motion. Patient denies any Home Health services prior to admission. Patient denies any discharge needs at this time. CM will continue to follow and assist with discharge planning / needs. Zoology Professor: Olena Moses DCPIA - Discharge Planning Initial Assessment Updated by [email or web address]: Olena Moses on 04/28/18 4:23 pm * Is the patient Alert and Oriented? Yes * How many steps to enter\exit or inside your home? * PCP [facility] OFFICE * Pharmacy [facility] * Preadmission Environment Home with Family * ADLs Independent * Other Equipment WALKER, BSC, SHOWER CHAIR, CPM , ICE BATH * List name and contact numbers for known caregivers / representatives who currently or will assist patient after discharge: ANA CASTELLANOS - - [phone] * Verbal permission to speak to the caregivers and representatives has been obtained from the patient. Yes * Additional services required to return to the preadmission environment? No * Can the patient safely return to the preadmission environment? Yes * Has this patient been hospitalized within the prior 30 days at any hospital? No Last DP export: 05/01/18 4:24 p Patient Name: KWASI CASTELLANOS Page [phone] at 1026 All edits/amendments must be made on the electronic document DICTATION DATE: 05/02/18 1026 FOLDING MACHINE FEEDER: GINA 05/02/18 1026 RPT#: [id number] DC DATE:05/01/18 STATUS: DIS IN [facility] [address] [place] [address] END OF REPORT
--- NOTE | 2018-05-02 14:55 | MORECARE ---
CASE MANAGEMENT DISCHARGE SUMMARY PATIENT: KWASI CASTELLANOS UNIT: [id number] ADM DATE: 04/27/18 AGE: 53 : 61 SEX: M ROOM/BED: D.2210 AUTHOR: GUSTABO SPENCE PHYSICIAN: REFERRING PHYSICIAN: KWASI CACERES DO DATE OF SERVICE: 05/02/18 Discharge Plan Patient Name: KWASI CASTELLANOS Facility: [facility]:[place] : 1965 Planned Disposition: Home Anticipated Discharge Date: 05/01/18 Discharge Date: 05/01/2018 Expected LOS: 4 Initial Reviewer: [email or web address] Initial Review Date: 04/26/2018 Generated: 05/02/18 3:55 pm Comments DCP- Discharge Planning Updated by [email or web address]: Zulema Edwards on 05/02/18 9:[address] TELEPHONE CALL TO [facility] THIS AM. ADVISED OF PATIENT REFERRAL FOR PHYSICAL THERAPY. FAXED FACE SHEET, D/C SUMMARY AND MD ORDER TO [phone].. THEY WILL CONTACT THE PATIENT. 1015 PATIENT'S CALLED REGARDING CPM SETTING. TC TO THE REP, BENJAMIN ROMANO , AT [phone]. HE WILL SEND A REP TO SEE THE PATIENT'S . PHYSICAL THERAPY DISCUSSED CPM SETTINGS W/ THE VIA TELEPHONE. DCP- Discharge Planning Updated by [email or web address]: Zulema Edwards on 05/01/18 4:[address] LATE ENTRY 1000 PATIENT FOR DISCHARGE TO HOME TODAY. HE HAS HIS DME AT THE BEDSIDE. HE STATES NO ONE SPOKE TO HIM ABOUT OUTPATIENT PHYSICAL THERAPY. HE WOULD LIKE A PROVIDER CLOSE TO HIS HOME IN [place]. HE WILL COME TO [facility] IF HE HAS TO HAVE SERVICE ON SITE. CM FOUND THREE PROVIDERS CLOSER TO THE PATIENT. HE SELECTED [facility] AT [facility].. CONTACT PHONE NUMBER [phone]. PROVIDED PATIENT W/ ABOVE INFORMATION. CM AND THE PATIENT WILL CALL [facility] IN THE AM. DCP- Discharge Planning Updated by [email or web address]: Olena Moses on 04/28/18 2:[address] Patient Name: KWASI CASTELLANOS Admission Status: Elective Accout number: [id number] Admission Date: 04-27-2018 : 1965 Admission Diagnosis: Attending: KWASI CACERES Current LOS: 1 Anticipated DC Date: Planned Disposition: Home Primary Insurance: [employer] EXCHANGE Discharge Planning Comments: CM met with patient and family at bedside after obtaining verbal consent. Patient lives at home with his family and plans on returning upon discharge. Patient states that he has walker, bedside commode, shower chair, ice bath for knee, and CPM range of motion. Patient denies any Home Health services prior to admission. Patient denies any discharge needs at this time. CM will continue to follow and assist with discharge planning / needs. Product Applications Scientist: Olena Moses DCPIA - Discharge Planning Initial Assessment Updated by [email or web address]: Olena Moses on 04/28/18 4:23 pm * Is the patient Alert and Oriented? Yes * How many steps to enter\exit or inside your home? * PCP [facility] OFFICE * Pharmacy [facility] * Preadmission Environment Home with Family * ADLs Independent * Other Equipment WALKER, BSC, SHOWER CHAIR, CPM , ICE BATH * List name and contact numbers for known caregivers / representatives who currently or will assist patient after discharge: ANA CASTELLANOS - - [phone] * Verbal permission to speak to the caregivers and representatives has been obtained from the patient. Yes * Additional services required to return to the preadmission environment? No * Can the patient safely return to the preadmission environment? Yes * Has this patient been hospitalized within the prior 30 days at any hospital? No Last DP export: 05/02/18 9:26 a Patient Name: KWASI CASTELLANOS Page [phone] at 1452 All edits/amendments must be made on the electronic document DICTATION DATE: 05/02/18 1451 DOCUMENTUM CONSULTANT: GINA 05/02/18 1453 RPT#: [id number] DC DATE:05/01/18 STATUS: DIS IN [facility] [address] [place] [address] END OF REPORT
== END 2018-05-01 13:03 | disposition home or self-care (01) | DRG 469 ==
LOC: D.SDCHOLD 04-20 10:00 → D.ICU 04-27 07:18 → D.MS 04-27 07:18 → D.ICU 04-28 15:02 → D.MS 04-29 13:44
PROVIDERS: Anesthesiology; Emergency Medicine; Internal Medicine Nephrology; ADMIT Orthopaedic Surgery; ATTEND Orthopaedic Surgery
PROC: 0SRC0J9 Replacement of Right Knee Joint with Synthetic Substitute, Cemented, Open Approach (ICD-10-PCS; principal; 2018-04-27 10:30)
DX: M17.11 Unilateral primary osteoarthritis, right knee (principal); N17.0 Acute kidney failure with tubular necrosis; D68.2 Hereditary deficiency of other clotting factors; Z68.41 Body mass index [BMI] 40.0-44.9, adult; D62 Acute posthemorrhagic anemia; N40.0 Benign prostatic hyperplasia without lower urinary tract symptoms; I10 Essential (primary) hypertension; I95.9 Hypotension, unspecified; E66.01 Morbid (severe) obesity due to excess calories; E86.1 Hypovolemia; Z98.84 Bariatric surgery status

== ENCOUNTER → 2018-06-02 12:29 | Outpatient (CLI) | payer BC ==
[~2018-06-02 12:29] MED LIST changes: +CLEOCIN HCL300 MG PO; +FLORANEX / LACT1 TAB PO; +FOLIC ACID1 MG PO; +KEFLEX500 MG PO; +LOVENOX40 MG/0.4 SC; +MUPIROCIN22 GM TOPICAL; +OMNICEF300 MG PO; +OXYCODONE HCL5 M1 PO; +PROTONIX40 MG PO; +VISTARIL50 MG PO; +ZYLOPRIM100 MG PO
[2018-06-02 12:45] LABS: BASOPHILS 0.6 % (0-2); EOSINOPHILS 7.3 % (0-7); HEMATOCRIT 36.7 % (42.0-54.0); HEMOGLOBIN 11.1 g/dL (13.5-17.5); IMMATURE GRANULOCYTES 0.1 % (0-5); LYMPHOCYTES 17.5 % (15-50); MCH 23.9 pg (26.0-34.0); MCHC 30.2 g/dL (31.0-37.0); MCV 79.1 fL (80.0-100.0); MEAN PLATELET VOLUME 10.1 fL (7.4-10.4); MONOCYTES 10.7 % (2-11); NEUTROPHILS 63.8 % (40-80); RBC 4.64 10x6/uL (4.20-6.10); RDW 15.4 % (11.5-14.5); WBC 8.3 10x3/uL (4.8-10.8)
[2018-06-02 12:46] LABS: PLATELET COUNT 260 10x3/uL (130-400)
[2018-06-02 14:51] LABS: ERYTHROCYTE SEDIMENTATION RATE 28 mm/hr (0-20)
== END | disposition home or self-care (01) ==
LOC: D.LABREF 12:29
PROVIDERS: Orthopaedic Surgery
DX: R60.0 Localized edema (principal)

== ENCOUNTER → 2018-06-02 13:16 | Outpatient (CLI) | payer BC | END | disposition home or self-care (01) | LOC: D.US 13:16 | DX: R22.41 Localized swelling, mass and lump, right lower limb (principal) ==

== ENCOUNTER 2018-06-03 12:55 | Inpatient (IN) | payer BC ==
[~2018-06-03] VITALS: Ht 188 cm; Wt 142.7 kg
[~2018-06-03 12:55] MED LIST changes: -CLEOCIN HCL300 MG PO; -FLORANEX / LACT1 TAB PO; -FOLIC ACID1 MG PO; -KEFLEX500 MG PO; -MUPIROCIN22 GM TOPICAL; -PROTONIX40 MG PO; -ZYLOPRIM100 MG PO
[2018-06-03 13:52] VITALS: BP 146/83; Ht 188 cm; Wt 142.7 kg
[2018-06-03] MEDS ORDERED: HYDROCODON-ACE1 EA10 PO (14:32)
[2018-06-03 14:51] LABS: BASOPHILS 0.5 % (0-2); EOSINOPHILS 8.2 % (0-7); HEMATOCRIT 35.9 % (42.0-54.0); HEMOGLOBIN 10.7 g/dL (13.5-17.5); IMMATURE GRANULOCYTES 0.1 % (0-5); MCH 23.8 pg (26.0-34.0); MCHC 29.8 g/dL (31.0-37.0); MEAN PLATELET VOLUME 9.8 fL (7.4-10.4); MONOCYTES 10.4 % (2-11); NEUTROPHILS 67.8 % (40-80); PLATELET COUNT 274 10x3/uL (130-400); RBC 4.49 10x6/uL (4.20-6.10); RDW 15.3 % (11.5-14.5); WBC 8.2 10x3/uL (4.8-10.8)
[2018-06-03 14:55] LABS: INR 2.62 (0.85-1.17); PROTIME 27.3 SECONDS (11.6-15.0)
[2018-06-03 14:58] LABS: ALBUMIN 2.8 g/dL (3.4-5.0); ANION GAP 11.2 mmol/L (8-16); BILIRUBIN - TOTAL 0.36 mg/dL (0.2-1.3); CALCIUM 8.4 mg/dL (8.5-10.1); CARBON DIOXIDE 28.8 mmol/L (21.0-32.0); CREATININE - SERUM 1.3 mg/dL (0.6-1.3); PROTEIN - SERUM 6.8 g/dL (6.4-8.2)
--- NOTE | 2018-06-03 15:15 | NUR ---
PATIENT IV STARTED BY WILBERT MAIN X 4 STICKS IN LEFT WRIST. TOLERATED WITH SMALL AMOUNT OF PAIN. FAMILY AT BEDSIDE. IVF AND ABX INFUSING. REFUSED MIRALAX. CALL LIGHT WITHIN REACH.
[2018-06-03 16:44] VITALS: BP 118/73
--- NOTE | 2018-06-03 18:48 | NUR ---
PATIENT IN BED WITH IV INTACT. NO COMPLAINTS OR SIGNS OF DISTRESS. CALL LIGHT WITHIN REACH.
[2018-06-03 20:01] VITALS: BP 109/76
--- NOTE | 2018-06-03 20:25 | NUR ---
PT ALERT & ORIENTED. FAMILY IN ROOM VISITING. RLE REDNESS, SWELLING. COMPLETE ASSESSMENT PER FLOW-SHEET. HUNG SCHEDULED ANTIBIOTIC. NO OTHER NEEDS. WILL CONTINUE TO MONITOR.
[2018-06-04 01:25] VITALS: BP 119/68
[2018-06-04 04:57] VITALS: BP 120/76
[2018-06-04 05:38] LABS: BASOPHILS 0.3 % (0-2); EOSINOPHILS 11.5 % (0-7); HEMATOCRIT 32.3 % (42.0-54.0); HEMOGLOBIN 9.5 g/dL (13.5-17.5); IMMATURE GRANULOCYTES 0.3 % (0-5); MCH 23.4 pg (26.0-34.0); MCHC 29.4 g/dL (31.0-37.0); MCV 79.6 fL (80.0-100.0); MEAN PLATELET VOLUME 9.4 fL (7.4-10.4); MONOCYTES 7.4 % (2-11); NEUTROPHILS 65.5 % (40-80); PLATELET COUNT 274 10x3/uL (130-400); RBC 4.06 10x6/uL (4.20-6.10); RDW 15.4 % (11.5-14.5); WBC 6.6 10x3/uL (4.8-10.8)
[2018-06-04 06:12] LABS: ANION GAP 10.4 mmol/L (8-16); CALCIUM 8.1 mg/dL (8.5-10.1); CARBON DIOXIDE 30.2 mmol/L (21.0-32.0); CREATININE - SERUM 1.3 mg/dL (0.6-1.3); POTASSIUM - SERUM 3.6 mmol/L (3.5-5.1)
--- NOTE | 2018-06-04 08:35 | NUR ---
PT AAOX4 RESP EVEN AND NONLABROED, NO SIGNS OF DISTRESS NOTED, REQUESTING FOR LIGHTS TO BE OFF DONE AT THIS TIME, CL IN REACH
[2018-06-04 09:06] VITALS: BP 119/71
[2018-06-04 16:24] VITALS: BP 134/76
[2018-06-04 20:25] VITALS: BP 108/65
--- NOTE | 2018-06-04 20:30 | NUR ---
PT ALERT & ORIENTED. RIGHT LOWER LEG REDNESS IMPROVED SINCE LAST ASSESSMENT. HUNG SCHEDULED ANTIBIOTIC. COMPLETE ASSESSMENT PER FLOW-SHEET. NO OTHER NEEDS. WILL CONTINUE TO MONITOR.
[2018-06-05 00:25] VITALS: BP 121/71
[2018-06-05 03:41] VITALS: BP 106/72
[2018-06-05 05:18] LABS: BASOPHILS 0.8 % (0-2); EOSINOPHILS 15.4 % (0-7); HEMOGLOBIN 10.4 g/dL (13.5-17.5); IMMATURE GRANULOCYTES 0.3 % (0-5); LYMPHOCYTES 23.1 % (15-50); MCH 23.7 pg (26.0-34.0); MCHC 29.7 g/dL (31.0-37.0); MCV 79.7 fL (80.0-100.0); MEAN PLATELET VOLUME 9.3 fL (7.4-10.4); MONOCYTES 10.3 % (2-11); NEUTROPHILS 50.1 % (40-80); PLATELET COUNT 299 10x3/uL (130-400); RBC 4.39 10x6/uL (4.20-6.10); RDW 15.4 % (11.5-14.5); WBC 6.3 10x3/uL (4.8-10.8)
[2018-06-05 05:22] LABS: INR 2.68 (0.85-1.17); PROTIME 27.8 SECONDS (11.6-15.0)
[2018-06-05 05:35] LABS: ANION GAP 10.5 mmol/L (8-16); CALCIUM 8.4 mg/dL (8.5-10.1); CARBON DIOXIDE 30.9 mmol/L (21.0-32.0); CREATININE - SERUM 1.3 mg/dL (0.6-1.3)
[2018-06-05 05:39] LABS: POTASSIUM - SERUM 4.4 mmol/L (3.5-5.1)
--- NOTE | 2018-06-05 08:06 | NUR ---
PT RESTING EYES CLOSED NO SIGNS OF DISTRESS NOTED, EASY RISE AND FALL OF CHEST WILL CONTINUE TO MONITOR CL IN REACH
[2018-06-05 09:08] VITALS: BP 126/72
[2018-06-05 13:36] VITALS: BP 139/75
--- NOTE | 2018-06-05 14:55 | NUR ---
I have reviewed this patient and I concur with the Shift Assessment completed by the Licensed Practical Nurse today this shift.
[2018-06-05 18:14] VITALS: BP 140/86
[2018-06-05 19:50] VITALS: BP 103/76
--- NOTE | 2018-06-05 21:08 | NUR ---
PT ALERT & ORIENTED. RIGHT LOWER LEG REDNESS AND SWELLING IMPROVED SINCE LAST ASSESSMENT. COMPLETE ASSESSMENT PER FLOW-SHEET. NO OTHER OTHER NEEDS. WILL CONTINUE TO MONITOR.
[2018-06-06 00:45] VITALS: BP 121/74
--- NOTE | 2018-06-06 04:13 | NUR ---
LEFT UPPER IV ARM LEAKING. REMOVED CATHETER INTACT. IV 20 G RESITED TO RIGHT UPPER ARM BY JOSE DAVID MCCORD ON FIRST ATTEMPT. PT TOLERATED WELL. IV FLUIDS RESUMED. NO OTHER NEEDS. WILL CONTINUE TO MONITOR.
[2018-06-06 04:28] VITALS: BP 122/69
[2018-06-06 04:55] LABS: BASOPHILS 0.6 % (0-2); EOSINOPHILS 14.4 % (0-7); HEMATOCRIT 35.2 % (42.0-54.0); HEMOGLOBIN 10.5 g/dL (13.5-17.5); IMMATURE GRANULOCYTES 0.3 % (0-5); LYMPHOCYTES 29.2 % (15-50); MCH 23.8 pg (26.0-34.0); MCHC 29.8 g/dL (31.0-37.0); MCV 79.6 fL (80.0-100.0); MEAN PLATELET VOLUME 9.3 fL (7.4-10.4); MONOCYTES 9.7 % (2-11); NEUTROPHILS 45.8 % (40-80); PLATELET COUNT 327 10x3/uL (130-400); RBC 4.42 10x6/uL (4.20-6.10); RDW 15.4 % (11.5-14.5); WBC 6.2 10x3/uL (4.8-10.8)
[2018-06-06 05:08] LABS: ANION GAP 10.9 mmol/L (8-16); CALCIUM 8.7 mg/dL (8.5-10.1); CREATININE - SERUM 1.2 mg/dL (0.6-1.3); POTASSIUM - SERUM 3.9 mmol/L (3.5-5.1)
--- NOTE | 2018-06-06 07:10 | NUR ---
PT SITTING UP IN BED, EYES OPEN. NO C/O PAIN. NO S/S OF ACUTE DISTRESS NOTED. PT ALERT AND ORIENTED. IV TO RIGHT UPPER ARM, 1/2 NS INFUSING @ 50ML/HR. SITE PATENT WITHOUT REDNESS OR SWELLING. PT STATES HE JUST WANTS TO GO HOME. PT DENIES AYTHING FURTHER AT THIS TIME. CALL LIGHT IN REACH. WILL CONTINUE TO MONITOR.
[2018-06-06 09:01] VITALS: BP 138/83
--- NOTE | 2018-06-06 09:51 | NUR ---
I have reviewed this patient and I concur with the Shift Assessment completed by the Licensed Practical Nurse today this shift.
[2018-06-06 12:57] VITALS: BP 134/92
--- NOTE | 2018-06-06 12:57 | MORECARE ---
CASE MANAGEMENT DISCHARGE SUMMARY PATIENT: KWASI CASTELLANOS UNIT: [id number] ADM DATE: 06/03/18 AGE: 53 : 61 SEX: M ROOM/BED: D.2233 AUTHOR: GUSTABO SPENCE PHYSICIAN: REFERRING PHYSICIAN: NURIA MARIO MD DATE OF SERVICE: 06/06/18 Discharge Plan Patient Name: KWASI CASTELLANOS Facility: [facility]:[place] : 1965 Planned Disposition: Home Anticipated Discharge Date: Discharge Date: Expected LOS: Initial Reviewer: [email or web address] Initial Review Date: 06/06/2018 Generated: 06/06/18 1:57 pm Comments DCP- Discharge Planning Updated by [email or web address]: Medina Coon on 06/06/18 11:[address] Patient Name: KWASI CASTELLANOS Admission Status: Urgent Accout number: [id number] Admission Date: 06-03-2018 : 1965 Admission Diagnosis: Attending: NURIA MARIO Current LOS: 3 Anticipated DC Date: Planned Disposition: Home Primary Insurance: [employer] EXCHANGE Discharge Planning Comments: CM met with patient to complete initial dc planning assessment. CM educated patient on the CM role and verbal consent given by patient to complete assessment. Patient lives at home with his . At discharge patient plans to return and feels this is a safe discharge. CM discussed availability of home health, rehab services, and medical equipment. Patient denied known discharge needs at this time. States his will pick him up today. States he has been going to [facility] for PT on his knee. States he has DME at home, but "no longer needs it." CM will continue to follow and will assist as needed with dc plans/needs. Gas Meter Checker: Medina Coon DCPIA - Discharge Planning Initial Assessment Updated by [email or web address]: Medina Coon on 06/06/18 12:53 pm * Is the patient Alert and Oriented? Yes * How many steps to enter\\exit or inside your home? 0/0 * PCP Belkys Ferrell at Dr. Ham's office * Pharm[facility] * Preadmission Environment Home with Family * ADLs Independent * Equipment Bedside Commode Other Shower Chair Walker * Other Equipment CPM Ice machine * List name and contact numbers for known caregivers / representatives who currently or will assist patient after discharge: Rukhsana Castellanos - - [phone] * Verbal permission to speak to the caregivers and representatives has been obtained from the patient. Yes * Community resources currently utilized None * Additional services required to return to the preadmission environment? No * Can the patient safely return to the preadmission environment? Yes * Has this patient been hospitalized within the prior 30 days at any hospital? No Patient Name: KWASI CASTELLANOS Page [phone] at 1257 All edits/amendments must be made on the electronic document DICTATION DATE: 06/06/18 1257 INDIVIDUALIZED EDUCATION PLAN AIDE: GINA 06/06/18 1257 RPT#: [id number] DC DATE: STATUS: ADM IN [facility] [address] [place] [address] END OF REPORT
[2018-06-06] MEDS ORDERED: FLORANEX / LACT1 TAB PO (12:58)
[2018-06-06] MEDS ORDERED: PROTONIX40 MG PO (12:58)
[2018-06-06] MEDS ORDERED: CLEOCIN HCL300 MG PO (12:58)
--- NOTE | 2018-06-06 14:13 | NUR ---
PT DISCHARGED HOME WITH FAMILY, VIA WHEELCHAIR. NO C/O PAIN. NO S/S OF ACUTE DISTRESS NOTED. WENT OVER DISCHARGE INSTRUCTIONS WITH PT AND FAMILY, PT VERBALIZED UNDERSTANDING. DISCONTINUED IV, CATHETER TIP INTACT. PT DENIES ANYTHING FURTHER.
== END 2018-06-06 14:14 | disposition home or self-care (01) | DRG 603 ==
LOC: D.MS 12:55
PROVIDERS: ADMIT Internal Medicine Nephrology; ATTEND Internal Medicine Nephrology
DX: L03.115 Cellulitis of right lower limb (principal); D68.2 Hereditary deficiency of other clotting factors; I10 Essential (primary) hypertension

== ENCOUNTER 2018-07-15 14:23 | Inpatient (IN) | payer BC ==
[~2018-07-15 14:23] MED LIST changes: +CLEOCIN HCL300 MG PO; +FLORANEX / LACT1 TAB PO; +PROTONIX40 MG PO
[2018-08-08] MEDS ORDERED: MUPIROCIN22 GM TOPICAL (09:49)
[2018-08-08] MEDS ORDERED: LOVENOX40 MG/0.4 SC (09:53)
[2018-08-08 10:35] LABS: BASOPHILS 1.1 % (0-2); EOSINOPHILS 8.6 % (0-7); HEMATOCRIT 37.5 % (42.0-54.0); HEMOGLOBIN 11.1 g/dL (13.5-17.5); IMMATURE GRANULOCYTES 0.2 % (0-5); LYMPHOCYTES 26.3 % (15-50); MCH 22.6 pg (26.0-34.0); MCHC 29.6 g/dL (31.0-37.0); MCV 76.4 fL (80.0-100.0); MEAN PLATELET VOLUME 9.4 fL (7.4-10.4); MONOCYTES 10.2 % (2-11); NEUTROPHILS 53.6 % (40-80); PLATELET COUNT 293 10x3/uL (130-400); RBC 4.91 10x6/uL (4.20-6.10); RDW 14.6 % (11.5-14.5); WBC 6.2 10x3/uL (4.8-10.8)
[2018-08-08 10:56] LABS: CALC OSMOLALITY 282 mosm/kg (275-300); CALCIUM 9.2 mg/dL (8.5-10.1); CARBON DIOXIDE 32.8 mmol/L (21.0-32.0); CHLORIDE - SERUM 105 mmol/L (98-107); CREATININE - SERUM 0.9 mg/dL (0.6-1.3); GLUCOSE 104 mg/dL (74-106); INR 1.22 (0.85-1.17); POTASSIUM - SERUM 4.6 mmol/L (3.5-5.1); PROTIME 14.9 SECONDS (11.6-15.0); SODIUM 141 mmol/L (136-145); UREA NITROGEN 19 mg/dL (7-18); eGFR NON AFRICAN AMERICAN > 90 mL/min (90-120)
[2018-08-08 11:02] LABS: APPEARANCE CLEAR (CLEAR); BILIRUBIN NEGATIVE (NEGATIVE); COLOR STRAW (YELLOW); GLUCOSE NEGATIVE (NEGATIVE); KETONE NEGATIVE (NEGATIVE); NITRITE NEGATIVE (NEGATIVE); PROTEIN NEGATIVE (NEGATIVE)
[2018-08-09] VITALS (9 sets, daily range): BP systolic 86–148; BP diastolic 48–84; BMI 42.3; BMI 42.1
[2018-08-09] MEDS ORDERED: ZYLOPRIM100 MG PO (06:40)
[2018-08-09] MEDS ORDERED: FOLIC ACID1 MG PO (06:42)
--- NOTE | 2018-08-09 08:30 | NUR ---
PLASMA BLADE SET 6/8 BOVIE PAD RIGHT THIGH [id number] EXP 05/31/20
--- NOTE | 2018-08-09 11:00 | NUR ---
PT TO ROOM 2218 FROM PACU VIA BED. VSS, FREQUENT VS SHEET.ORIENTATION TO ROOM WITH PT AND FAMILY.IS TO BEDSIDE WITH TEACHING. PT RETURNS DEMONSTRATION,3500ML.SCD ON RLE,VANIA SCD ON LLE.PT STATES PAIN FREE FROM BLOCK.CALL LIGHT PLACED IN REACH,USE INSTRUCTED.
--- NOTE | 2018-08-09 11:40 | OP ---
PATIENT NAME: ANTELMO CASTELLANOS MEDICAL RECORD: [id number] :[birth year] LOCATION:D.MS [id number] ADMISSION DATE:08/09/18 SURGEON: ANTELMO CACERES DO DATE OF OPERATION: 08/09/2018 PROCEDURE PERFORMED: Left total knee arthroplasty. PREOPERATIVE DIAGNOSIS: Left knee osteoarthritis. POSTOPERATIVE DIAGNOSIS: Left knee osteoarthritis. INDICATIONS: Mr. Castellanos is a 53-year-old male who had his right knee done some months ago and wanted his left knee done. He is tired of it affecting his activities of daily living. He can toe walk any distance without a knee pain and is very stiff after sitting for a long time. He is aware of the risks including blood clots, damage to nerves and vessels, bleeding, need for further surgery, failure of hardware, fracture and he signed a consent, even . SURGEON: Antelmo Caceres DO TUFT MACHINE OPERATOR: Jay Jay Prince, advanced nurse practitioner. He assisted with closing and holding retractors. DESCRIPTION OF PROCEDURE: The patient received a block by anesthesia in the preoperative area. He was taken to the operative suite, laid in the supine position, given general anesthetic. LMA was placed. He was given a gram of vancomycin preoperatively. The left lower extremity was prepped and draped in sterile fashion. A timeout was performed and everyone was in agreement with the correct side, site, patient, and procedure. Incision then began being marked out and then covered in Ioban, then began with a 10-blade scalpel at the time it had been performed down to the capsule. Capsule was cleaned off and medial parapatellar approach was used through the capsule. Some of the fat pad was removed and the patella was milled down to fit a prosthesis. The femur was then flexed up and the femoral canal was entered. The distal femur guide was then placed and after the guide was pinned, the distal femur was cut. The tibia was then exposed. The tibia was cut and then the knee was brought out to extension. The menisci were removed and any if other bone fragments were there and the posterior capsule and medial and lateral escobedo were coagulated with the Aquamantys. The knee was then flexed up after the extension block was put in and it fit very nicely. The knee was flexed up and the femur sized to be 75. The 4-in-1 cutting block was then put on, cut, and after being checked with the Tor Wing, the excess bone was removed. At that time, the trial was then put in place and then ranged and marked the rotation on the tibia with the tibia floated in. The patella was then drilled as well as the lug holes for the femur and the tibia was exposed. An 83 cruciate tibia was then sized and drilled and punched. Then, the knee was thoroughly irrigated. The cement was put on, mixed, and put in the tibia as well as on the implant, impacted into place. Excess cement was removed. The femur was then impacted down the press-fit and then poly put in between the knee brought to extension and then patella was put on and cement on the holes as well as on the patella and the screws was put on. Excess cement was removed from that. Knee was then irrigated while cement dried. Once the cement had dried, we trialed with 12, it fit very well and we decided to go with the 12 lift or a deep dish poly and anterior stabilized E-poly. The locking mechanism was then put into place and then the knee was irrigated again and then tobramycin and vancomycin powder along with Surgicel OPERATIVE REPORT [id number] ANTELMO CASTELLANOS powder bead was put in the knee. The capsule was then closed with #2 Ethibond doing a slight lateral release to the subluxation of the patella slightly laterally and then closed with #2 Ethibond. This was irrigated and the skin was closed with 2-0 Vicryl in inverted interrupted fashion and a ZipLine placed on the knee. Adaptic, 4 x 4s, ABD, Webril, Osmar wrap and VANIA hose stockinette was then placed up to the knee. The patient was awakened and taken to recovery in stable condition. BLOOD LOSS: 200 mL. COMPLICATIONS: None. TRANSINT:[id number] Voice Confirmation ID: [id number] DOCUMENT ID: [id number] ANTELMO CACERES DO at 1140 CC: [id number] DICTATION DATE: 08/09/18 1000 MANAGER OF HOSPITAL: 08/09/18 1132 ADM IN [address] [place] [address]
--- NOTE | 2018-08-09 14:07 | NUR ---
REMAINS WITHOUT DISTRESS.MEDS PER MAR ORDERED FOR PAIN.FAMILY AT BEDSIDE
[2018-08-09 15:35] LABS: % SATURATION 4 % (15-55); IRON 16 ug/dl (35-150); TOTAL IRON BIND CAPACITY 394 ug/dl (260-445); UNSAT IRON BIND CAPACITY 378 ug/dl (150-375)
[2018-08-09 15:48] LABS: FERRITIN 11 ng/mL (3-244); LDH 167 U/L (85-227)
--- NOTE | 2018-08-09 17:23 | NUR ---
CALL TO PHARMACY FOR COUMADIN,SPOKE WITH MARII.
--- NOTE | 2018-08-09 17:34 | NUR ---
DR CACERES TO SEE PT. PT IS WITHOUT DISTRESS.DENIES PAIN.MONITOR
--- NOTE | 2018-08-09 20:00 | NUR ---
ASSESSMENT PER FLOWSHEET. PT'S LEFT LEG IN THE CPM MACHINE. NEW WRAP DRSG TO LEFT KNEE C/D/I. PPP+ TEDS/SCD'S IN PLACE. IV PATENT RT ARM OF 1/2NS AT 100CC'S/HR SITE CLEAR. ENCOURAGED INCENTIVE SPIROMETER USEAGE. DENIES PAIN. SR UP X2 CALL LIGHT WITHIN REACH.
--- NOTE | 2018-08-09 21:15 | NUR ---
MEDS GIVEN PER MAR.
--- NOTE | 2018-08-09 21:45 | NUR ---
CPM OFF RESTING QUIETLY DENIES NEEDS.
[2018-08-10] VITALS (10 sets, daily range): BP systolic 92–113; BP diastolic 46–64
--- NOTE | 2018-08-10 02:00 | NUR ---
VOIDS WELL IN URINAL.
--- NOTE | 2018-08-10 04:33 | NUR ---
EYES CLOSED RESPIRATIONS WITH EASE AND UNLABORED.
[2018-08-10 06:26] LABS: BASOPHILS 0.8 % (0-2); EOSINOPHILS 1.2 % (0-7); IMMATURE GRANULOCYTES 0.3 % (0-5); LYMPHOCYTES 10.3 % (15-50); MCV 75.7 fL (80.0-100.0); MEAN PLATELET VOLUME 9.8 fL (7.4-10.4); MONOCYTES 11.9 % (2-11); NEUTROPHILS 75.5 % (40-80); PLATELET COUNT 248 10x3/uL (130-400); RDW 14.9 % (11.5-14.5)
[2018-08-10 06:34] LABS: WBC 9.3 10x3/uL (4.8-10.8)
[2018-08-10 06:35] LABS: HEMATOCRIT 29.3 % (42.0-54.0); HEMOGLOBIN 8.5 g/dL (13.5-17.5); RBC 3.87 10x6/uL (4.20-6.10)
[2018-08-10 06:45] LABS: ANION GAP 10.8 mmol/L (8-16); CALCIUM 8.1 mg/dL (8.5-10.1); CARBON DIOXIDE 27.9 mmol/L (21.0-32.0); POTASSIUM - SERUM 4.7 mmol/L (3.5-5.1)
[2018-08-10 06:47] LABS: CREATININE - SERUM 1.7 mg/dL (0.6-1.3)
--- NOTE | 2018-08-10 08:00 | NUR ---
ASSESSMENT PER FLOW SHEET. PT IS WITHOUT DISTRESS.DRESING LEFT KNEE CDI. PT DENIES PAIN.CALL LIGHT IN REACH
--- NOTE | 2018-08-10 12:30 | NUR ---
PT STILL UP IN CHAIR,LUNCH SERVED
--- NOTE | 2018-08-10 14:44 | NUR ---
FAMILY TO VISIT. PT DENIES NEEDS
--- NOTE | 2018-08-10 20:00 | NUR ---
ASSESSMENT PER FLOWSHEET. DRSG TO LEFT KNEE C/D/I. VANIA HOSE ON RIGHT LEG SCD TO LEFT LEG. LEFT LEG IN CPM MACHINE. SR UP X2 CALL LIGHT WITHIN REACH. IV TO RT ARM OF 1/2NS AT 100CC'S/HR.
--- NOTE | 2018-08-10 20:30 | NUR ---
IV INFILTRATED AND REMOVED. RESITED TO LEFT HAND #22G ANGIOCATH X1 ATTEMPT. RESUMED IV FLUIDS. VOIDS IN URINAL. PATIENT STATES MD HAD ORDERED A MUNGUIA FOR UA RETENTION. PATIENT REFUSES ANY MUNGUIA CATHERIZATION. INFORMED ARAVIND FLANNERY. OK TO LEAVE MUNGUIA OUT.
--- NOTE | 2018-08-10 22:00 | NUR ---
MEDS GIVEN PER MAR.
--- NOTE | 2018-08-11 | NUR ---
EYES CLOSED RESPIRATIONS WITH EASE AND UNLABORED.
[2018-08-11 01:15] VITALS: BP 90/45
--- NOTE | 2018-08-11 01:37 | NUR ---
C/O INCISIONAL PAIN RATES PAIN LEVEL #8 OXYIR 10MG PO GIVEN FOR PAIN CONTROL.
--- NOTE | 2018-08-11 03:27 | NUR ---
PATIENT HAS BEEN VOIDING WELL IN URINAL. RESTING QUIETLY AT THIS TIME RESPIRATIONS WITH EASE AND UNLABORED. STATES PAIN MED DID HELP ALOT.
[2018-08-11 04:55] VITALS: BP 95/54
[2018-08-11 05:34] LABS: INR 1.25 (0.85-1.17); PROTIME 15.1 SECONDS (11.6-15.0)
[2018-08-11 05:41] LABS: ANION GAP 10.7 mmol/L (8-16); BASOPHILS 0.3 % (0-2); CALCIUM 7.8 mg/dL (8.5-10.1); CARBON DIOXIDE 27.9 mmol/L (21.0-32.0); HEMATOCRIT 27.9 % (42.0-54.0); HEMOGLOBIN 8.2 g/dL (13.5-17.5); IMMATURE GRANULOCYTES 0.3 % (0-5); LYMPHOCYTES 13.8 % (15-50); MCH 22.1 pg (26.0-34.0); MCHC 29.4 g/dL (31.0-37.0); MCV 75.2 fL (80.0-100.0); MEAN PLATELET VOLUME 9.7 fL (7.4-10.4); MONOCYTES 10.6 % (2-11); PLATELET COUNT 231 10x3/uL (130-400); POTASSIUM - SERUM 4.6 mmol/L (3.5-5.1); RBC 3.71 10x6/uL (4.20-6.10); RDW 14.9 % (11.5-14.5); WBC 8.8 10x3/uL (4.8-10.8)
[2018-08-11 05:42] LABS: CREATININE - SERUM 2.8 mg/dL (0.6-1.3)
[2018-08-11 09:38] VITALS: BP 82/52
[2018-08-11 10:47] VITALS: BP 110/62
[2018-08-11] MEDS ORDERED: OXYCODONE HCL5 M1 PO (12:01)
[2018-08-11] MEDS ORDERED: KEFLEX500 MG PO (12:02)
[2018-08-11] MEDS ORDERED: LOVENOX40 MG/0.4 SC (12:02)
[2018-08-11 13:55] VITALS: BP 100/65
--- NOTE | 2018-08-11 14:35 | MORECARE ---
CASE MANAGEMENT DISCHARGE SUMMARY PATIENT: KWASI CASTELLANOS UNIT: [id number] ADM DATE: 08/09/18 AGE: 53 : 61 SEX: M ROOM/BED: D.2218 AUTHOR: GUSTABO SPENCE PHYSICIAN: REFERRING PHYSICIAN: KWASI CACERES DO DATE OF SERVICE: 08/11/18 Discharge Plan Patient Name: KWASI CASTELLANOS [facility] [facility] 1965 Planned Disposition: Anticipated Discharge Date: Discharge Date: 08/11/2018 Expected LOS: Initial Reviewer: [email or web address] Initial Review Date: 08/09/2018 Generated: 08/11/18 3:35 pm Comments DCP- Discharge Planning Updated by [email or web address]: Shreya Vazquez on 08/11/18 1:[address] PATIENT HAD BEEN DISCHARGED PRIOR TO CM SEEING HIM. I CALLED PATIENT AND SPOKE WITH AND PATIENT VIA PHONE. THEY STATED THAT THEY HAVE ALL THE EQUIPMENT AT HIS HOME THAT WAS DELIVERED , IT WAS SET UP BY DR BISWAS OFFICE PATIENT WILL BE DOING OUTPATIENT REHAB AT [facility] FOR WednesdayJuly AT 2:00. I SPOKE WITH Nathan CUEVAS I CALLED THE PATIENT BACK TO LET THEM KNOW I FAXED OVER THE ORDERS AND FACESHEET Patient Name: KWASI CASTELLANOS Page [phone] at 1439 All edits/amendments must be made on the electronic document DICTATION DATE: 08/11/181433 HOG SCALDER: GINA 08/11/18 1434 RPT#: [id number] DC DATE:08/11/18 STATUS: DIS IN [facility] [address] [place] [address] END OF REPORT
[2018-08-11 16:09] LABS: FOLATE (FOLIC ACID) - SERUM 16.7 ng/mL (>3.0)
--- NOTE | 2018-08-15 08:44 | MORECARE ---
CASE MANAGEMENT DISCHARGE SUMMARY PATIENT: KWASI CASTELLANOS UNIT: [id number] ADM DATE: 08/09/18 AGE: 53 : 61 SEX: M ROOM/BED: D.2218 AUTHOR: GUSTABO SPENCE PHYSICIAN: REFERRING PHYSICIAN: KWASI CACERES DO DATE OF SERVICE: 08/15/18 Discharge Plan Patient Name: KWASI CASTELLANOS Facility: [facility]:[place] : 1965 Planned Disposition: Anticipated Discharge Date: Discharge Date: 08/11/2018 Expected LOS: Initial Reviewer: [email or web address] Initial Review Date: 08/09/2018 Generated: 08/15/18 9:44 am Comments DCP- Discharge Planning Updated by [email or web address]: Shreya Vazquez on 08/11/18 1:[address] PATIENT HAD BEEN DISCHARGED PRIOR TO CM SEEING HIM. I CALLED PATIENT AND SPOKE WITH AND PATIENT VIA PHONE. THEY STATED THAT THEY HAVE ALL THE EQUIPMENT AT HIS HOME THAT WAS DELIVERED , IT WAS SET UP BY DR BISWAS OFFICE PATIENT WILL BE DOING OUTPATIENT REHAB AT [facility] FOR WednesdayJuly AT 2:00. I SPOKE WITH Nathan CUEVAS I CALLED THE PATIENT BACK TO LET THEM KNOW I FAXED OVER THE ORDERS AND FACESHEET Last DP export: 08/11/18 1:35 p Patient Name: KWASI CASTELLANOS Page [phone] at 0844 All edits/amendments must be made on the electronic document DICTATION DATE: 08/15/18842 CUTTER ALUMINUM SHEET: GINA 08/15/1843 RPT#: [id number] DC DATE:08/11/18 STATUS: DIS IN [facility] [address] [place] [address] END OF REPORT
== END 2018-08-11 12:45 | disposition home or self-care (01) | DRG 470 ==
LOC: D.SDCHOLD 08-09 05:20 → D.MS 08-09 05:20 → D.SDCHOLD 08-09 07:00 → D.MS 08-09 10:31
PROVIDERS: Internal Medicine Nephrology; ADMIT Orthopaedic Surgery; ATTEND Orthopaedic Surgery
PROC: 0SRD0J9 Replacement of Left Knee Joint with Synthetic Substitute, Cemented, Open Approach (ICD-10-PCS; principal; 2018-08-09 07:30)
DX: M17.12 Unilateral primary osteoarthritis, left knee (principal); D68.51 Activated protein C resistance; D62 Acute posthemorrhagic anemia; N17.9 Acute kidney failure, unspecified; Z68.41 Body mass index [BMI] 40.0-44.9, adult; D50.9 Iron deficiency anemia, unspecified; E66.9 Obesity, unspecified